=== PATIENT | male | born 1985 | race Caucasian/White ===

== ENCOUNTER → 2021-08-06 10:08 | Outpatient (CLI) | payer SELFPAY ==
[2021-08-06 11:13] LABS: Liquefaction Semen YES (YES); PH Semen 8 (7-8); Volume Semen 3 (1.0-5.0)
[2021-08-06 13:21] LABS: Sperm Count 82 x10^6/mL (20-150); Sperm Morphology 35 %ABNORM (0-30); Sperm Motility 70% % Motile
== END ==
PROVIDERS: Referring Provider Naturopath; Visit Provider Naturopath
DX: Z31.440 Encounter of male for testing for genetic disease carrier status for procreative management (principal)
CPT/HCPCS: 89320